=== PATIENT | female | born 1990 | race Caucasian/White ===

== ENCOUNTER 2018-07-25 12:41 | Outpatient (CLI) | payer BC ==
[~2018-07-25 12:41] MED LIST: Gadobenate Dimeglumine 529 MG/1 ML (20ML VIAL) ONE
--- NOTE | 2018-07-25 16:01 | MRI ---
MRI BRAIN WITH AND WITHOUT IV CONTRAST: Date: 07/25/18 HISTORY: Migraine with aura, not intractable. FINDINGS: No restricted diffusion is seen. No evidence of infarct, hemorrhage, mass, midline shift, or abnormal extra-axial fluid collections are seen. The ventricular size is normal and the basilar cisterns are patent. No abnormal postcontrast enhancement is seen. No signal abnormalities are noted on the highly sensitive FLAIR images. No blood products are seen on the gradient echo sequences. No tonsillar chastity iation is identified. The visualized paranasal sinuses and mastoid air cells are well aerated. IMPRESSION: Normal exam. POS: [facility]
== END 2018-07-25 12:42 | disposition home or self-care (01) ==
LOC: SCSMRI 12:41
PROVIDERS: ATTEND Psychiatry & Neurology Neurology
DX: G43.109 Migraine with aura, not intractable, without status migrainosus (principal)
CPT/HCPCS: 70553; A9577